=== PATIENT | female | born 2000 | race Caucasian/White ===

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

== ENCOUNTER 2019-02-28 10:31 | Emergency (ER) | payer MEDICAID ==
--- NOTE | 2019-02-28 11:05 | Emergency Department Record ---
History of Present Illness - General Chief Complaint: Back Pain/Injury Stated Complaint: BACK PAIN FROM EPIDURAL Time Seen by Provider: 02/28/19 10:54 Source: Patient Mode of Arrival: Ambulatory Limitations: No limitations - History of Present Illness Initial Comments: The patient is here due to back pain for 5 weeks at her Epidural sight. She had an Epidural while in labor 5 weeks ago at [facility]. EVER since she has had pain at the sight. The pain is pretty much constant per the patient and not worse with any bending or lifting. She denies any leg numbness, weakness, or any bowel or bladder issues. The patient felt the pain to be slightly worse today and she did vomit so she decided to come to the ER. Presently her nausea is gone and the pain is back down to the chronic pain level. She also denies any AP, dysuria, hematuria, fever, SAWANT or neck pain. MD Complaint: Back pain Onset/Timin -: Week(s) Similar Symptoms Previously: Yes Place: Home Radiation: None Severity: Moderate Severity scale (1-10): 7 Quality: Sharp Improves With: None Worsens With: None Context: Other Associated Symptoms: Nausea/vomiting - Related Data Previous Rx's Medication Instructions Recorded Ibuprofen [Motrin] 800 mg PO TID PRN #20 tab 02/28/19 Ondansetron [Zofran Odt] 4 mg SL .Q4-6H PRN #12 tab.rapdis 02/28/19 Allergies Allergy/AdvReac Type Severity Reaction Status Date / Time No Known Drug Allergies Allergy Verified 12/19/18 01:33 Travel Screening - Travel/Exposure Within Last 30 Days Have you traveled within the last 30 days?: No Review of Systems Constitutional: Denies: Chills, Fever Eyes: Denies: Eye discharge ENT: Denies: Congestion Respiratory: Denies: Cough, Dyspnea Cardiovascular: Denies: Chest pain Endocrine: Denies: Fatigue Gastrointestinal: Denies: Abdominal pain Genitourinary: Denies: Dysuria Musculoskeletal: Reports: Back pain. Denies: Arthralgia Neurological: Denies: Abnormal gait, Confusion, Headache, Paresthesias, Tingling, Weakness Past Medical History - SOCIAL HISTORY Smoking Status: Current every day smoker - RESPIRATORY Hx Respiratory Disorders: No - CARDIOVASCULAR Hx Cardio Disorders: Yes Comment:: blacks out - wearing a heart monitor - NEURO Hx Neuro Disorders: No - GI Hx GI Disorders: No - Hx Genitourinary Disorders: No - ENDOCRINE Hx Endocrine Disorders: No - MUSCULOSKELETAL Hx Musculoskeletal Disorders: No - PSYCH Hx Psych Problems: No - HEMATOLOGY/ONCOLOGY Hx Hematology/Oncology Disorders: No Family Medical History Any Significant Family History?: No Physical Exam - General General Appearance: Alert, Oriented x3, Cooperative, No acute distress - Head Head exam: Atraumatic - Eye Eye exam: Normal appearance, PERRL - ENT Throat exam: Normal inspection. negative: Tonsillar erythema, Tonsillar exudate - Neck Neck exam: Normal inspection, Full ROM. negative: Meningismus (The neck is very supple.), Tenderness - Respiratory Respiratory exam: Normal lung sounds bilaterally. negative: Respiratory distress - Cardiovascular Cardiovascular Exam: Regular rate, Normal rhythm, Normal heart sounds - GI/Abdominal GI/Abdominal exam: Soft, Normal bowel sounds. negative: Tenderness - Extremities Extremities exam: Normal inspection, Full ROM, Normal capillary refill. negative: Tenderness - Back Back exam: Reports: Normal inspection (There is no swelling, erythema or any evidence of a previous epidural.). Denies: Paraspinal tenderness, Vertebral tenderness - Neurological Neurological exam: Alert, Normal gait, Oriented X3, Reflexes normal (The patellar and achilles reflexes are 2+ and equal bilaterally.), Other (The patient's motor and sensory are 5/5 and strong and equal bilaterally. She is able to bend without issues and is able to heel and toe walk normally with no weakness.). negative: Abnormal gait, Altered, Motor sensory deficit Course Vital Signs 02/28/19 10:38 Temperature 97.5 F L Pulse Rate 81 Respiratory 18 Rate Blood Pressure 134/93 Pulse Ox 97 - Reevaluation(s) Reevaluation #1: The patient did begin to vomit again due to the pain but it did improve with Zofran. I did explain to her that I cannot explain why she has the severe pain at the site of her previous Epidural. She denies any fever, AP, or dysuria and her abdomen is very soft and nontender. I explained to her that the only way to make sure she has no issues due to the Epidural is to get an MRI which we are unable to do. I doubt any issues from the Epidural due to the fact she has no fever, it has been a chronic problem, and she is completely neurologically intact. The patient does express interest in obtaining the MRI so I did discuss the case with DR. Whalen in the ER at [facility] and she does accept the patient in an ER to ER transfer. 02/28/19 12:32 Medical Decision Making - Data Complexity MDM Data: Labs Ordered and/or Reviewed - Lab Data Result diagrams: 02/28/19 11:45 02/28/19 11:45 Disposition Disposition: Transfer Clinical Impression: Back pain Qualifiers: Back pain location: back pain in unspecified location Chronicity: chronic Back pain laterality: midline Qualified Code(s): M54.9 - Dorsalgia, unspecified Disposition: Acute Care Hospital Transfer Transfer To: [facility] Reason For Transfer: MRI Accepting Physician: Koby Time Discussed w/Accepting Physician: 12:35 Condition: (2) Stable Additional Instructions: Please take the Motrin and Zofran for nausea and please proceed to the ER at [facility] for further evaluation and the MRI. Please also see your family doctor next week due to the mildly elevated liver tests. Return to the ER for any new or worseni ng issues. Prescriptions: Ibuprofen [Motrin] 800 mg PO TID PRN #20 tab PRN Reason: Pain Ondansetron [Zofran Odt] 4 mg SL .Q4-6H PRN #12 tab.rapdis PRN Reason: Nausea Forms: Patient Portal Access Time of Disposition: 12:35 Quality - Quality Measures Quality Measures: N/A - Blood Pressure Screening View Details: Yes Does Patient Have Any of the Following: No Blood Pressure Classification: Hypertensive Reading Systolic Measurement: 134 Diastolic Measurement: 93 Screening for High Blood Pressure: < First Hypertensive BP, F/U Documented > [[id number]] First Hypertensive Follow-up Interventions: Referral to alternative/primary care provider.
[2019-02-28] MEDS: ACETAMINOPHEN 325 MG TAB PO ONE (11:08)
[2019-02-28 11:13] LABS: URINE APPEARANCE CLEAR; URINE BILIRUBIN NEGATIVE (NEGATIVE); URINE BLOOD LARGE (NEGATIVE); URINE COLOR YELLOW; URINE GLUCOSE (UA) NEGATIVE (NEGATIVE); URINE KETONE NEGATIVE (NEGATIVE); URINE NITRITE NEGATIVE (NEGATIVE); URINE PROTEIN NEGATIVE (NEGATIVE); URINE UROBILINOGEN 0.2 E.U./dL (0.20 - 1.00)
[2019-02-28 11:25] LABS: URINE LEUKOCYTE ESTERASE TRACE (NEGATIVE)
[2019-02-28 11:26] LABS: URINE EPITHELIAL CELLS 21 - 35 (FEW)
[2019-02-28] MEDS: ONDANSETRON 4 MG ODT TABLET SL ONE (11:28)
[2019-02-28 11:31] LABS: HCG,QUALITATIVE URINE NEGATIVE (NEGATIVE)
[2019-02-28 11:57] LABS: BASO % 0.6 % (0-6); GRAN % 60.2 % (47-80); HEMOGLOBIN 12.1 gm/dl (11.6-16.0); LYMPH % 26.8 % (16-45); MEAN CELL VOLUME 88.6 fl (81-97); MEAN CORPUSCULAR HEMOGLOBIN 28.2 pg (27-33); MEAN CORPUSCULAR HGB CONC 31.8 g/dl (32-36); MEAN PLATELET VOLUME 9.2 fl (7.4-10.4); MONO % 8.4 % (0-9); PLATELET COUNT 335 K/uL (130-400); RED BLOOD COUNT 4.29 M/uL (3.80-5.40); RED CELL DISTRIBUTION WIDTH 13.2 % (11.5-14.5); WHITE BLOOD COUNT W/O DIFF 8.7 K/uL (4.2-12.2)
[2019-02-28 12:06] LABS: BLOOD UREA NITROGEN 12 mg/dL (6-20); CREATININE 0.6 mg/dL (0.5-0.9); LIPASE 47 U/L (13-60); TOTAL PROTEIN 7.3 g/dL (6.6-8.7)
[2019-02-28 12:08] LABS: GLUCOSE,RANDOM 105 mg/dL (74-109)
[2019-02-28 12:11] LABS: ALBUMIN 4.4 g/dL (4.0-5.0); ALKALINE PHOSPHATASE 105 U/L (35-104); ALT/SGPT 64 U/L (<33); AST/SGOT 34 U/L (10.0-35.0); BILIRUBIN,DIRECT < 0.2 mg/dL (0-0.3)
[2019-02-28 12:19] LABS: URINE APPEARANCE CLEAR; URINE BILIRUBIN NEGATIVE (NEGATIVE); URINE BLOOD NEGATIVE (NEGATIVE); URINE COLOR YELLOW; URINE GLUCOSE (UA) NEGATIVE (NEGATIVE); URINE KETONE NEGATIVE (NEGATIVE); URINE LEUKOCYTE ESTERASE NEGATIVE (NEGATIVE); URINE NITRITE NEGATIVE (NEGATIVE); URINE PROTEIN NEGATIVE (NEGATIVE); URINE UROBILINOGEN 0.2 E.U./dL (0.20 - 1.00)
[2019-02-28] MEDS: 0.9 % SODIUM CHLORIDE 1,000 ML BAG IV ONE (12:58)
== END 2019-02-28 13:03 | disposition short-term general hospital (02) ==
LOC: ER 10:31
DX: G89.18 Other acute postprocedural pain (principal); M54.9 Dorsalgia, unspecified; R11.2 Nausea with vomiting, unspecified; F17.210 Nicotine dependence, cigarettes, uncomplicated
CPT/HCPCS: 80048; 80076; 81001; 81003; 81025; 83690; 85025; 86140; 99284; J7030